=== PATIENT | male | born 1970 | race Caucasian/White ===

== ENCOUNTER 2017-11-16 05:36 | Outpatient (CLI) | payer OTHER ==
[~2017-11-16] VITALS: Ht 188 cm; Wt 74.8 kg
== END 2017-11-16 10:38 ==
LOC: PREOP 05:36
PROVIDERS: ATTEND Otolaryngology Otolaryngology/Facial Plastic Surgery
DX: Z01.818 Encounter for other preprocedural examination (principal); J38.3 Other diseases of vocal cords

== ENCOUNTER 2017-11-20 06:08 | Day surgery (SDC) | payer OTHER ==
[~2017-11-20] VITALS: Ht 188 cm; Wt 74.8 kg
--- OUTSIDE RECORDS SUMMARY | 2017-11-20 06:11 | XMS REPORT | Clinical Summary ---
Author Author Admin, Gurpreet Organization [facility] [facility] Address Unknown Phone Unavailable Allergies, Adverse Reactions, Alerts Allergy Name Reaction Description Start Date Severity Status Provider Allergies Unknown Conditions or Problems Problem Name Problem Code Onset Date Status Entry Date Provider Comment Standard Description Annotate Olecranon bursitis 726.33 Active Jillina Frazell SHOP MECHANIC HELPER Olecranon bursitis Cellulitis 682.9 Active Jillina Frazell SHOP MECHANIC HELPER Cellulitis and abscess of unspecified sites Medication List Medication Instructions Start Date Stop Date Generic Name NDC Status Provider Patient Instruction PREDNISONE 20 MG TAB 2 tabs daily for 3 days, 1 tab daily for 3 days, 1/2 tab daily for 2 days PREDNISONE 75134261720 Active Jillina Frazell SHOP MECHANIC HELPER Active BACTRIM DS 800-160 MG TAB 1 tab by mouth twice daily TRIMETHOPRIM-SULFAMETHOXAZOLE 82126600087 Active Jillina Frazell SHOP MECHANIC HELPER Active Encounters Code Encounter Date Provider Facility CPT-19022 Level 3 Est. Patient 15:25:03 CDT Sierra Weinerl SHOP MECHANIC HELPER [employer] [facility] Procedures Code Procedure Name Date Entry Date Standard Description CPT-29916 Elbow, right, Comp Min 3V - XRAY USE ONLY 16:36:20 CDT
--- OUTSIDE RECORDS SUMMARY | 2017-11-20 06:11 | XMS REPORT | Clinical Summary ---
Author Author Admin, Gurpreet Organization [employer] Address Unknown Phone Unavailable Allergies, Adverse Reactions, Alerts Allergy Name Reaction Description Start Date Severity Status Provider Allergies Unknown Conditions or Problems Problem Name Problem Code Onset Date Status Entry Date Provider Comment Standard Description Annotate Olecranon bursitis 726.33 Active Jillina Frazell DROP WIRE ALIGNER Olecranon bursitis Cellulitis 682.9 Active Jillina Frazell DROP WIRE ALIGNER Cellulitis and abscess of unspecified sites Medication List Medication Instructions Start Date Stop Date Generic Name NDC Status Provider Patient Instruction PREDNISONE 20 MG TAB 2 tabs daily for 3 days, 1 tab daily for 3 days, 1/2 tab daily for 2 days PREDNISONE 99713608163 Active Jillina Frazell DROP WIRE ALIGNER Active BACTRIM DS 800-160 MG TAB 1 tab by mouth twice daily TRIMETHOPRIM-SULFAMETHOXAZOLE 10271914553 Active Jillina Frazell DROP WIRE ALIGNER Active Encounters Code Encounter Date Provider Facility CPT-79664 Level 3 Est. Patient 15:25:03 CDT Sierra Weinerl DROP WIRE ALIGNER [facility] Procedures Code Procedure Name Date Entry Date Standard Description CPT-61622 Elbow, right, Comp Min 3V - XRAY USE ONLY 16:36:20 CDT
--- OUTSIDE RECORDS SUMMARY | 2017-11-20 06:11 | XMS REPORT | Clinical Summary ---
Author Author Admin, EMMANUELLE Organization [employer] Address Unknown Phone Unavailable Allergies, Adverse Reactions, Alerts Allergy Name Reaction Description Start Date Severity Status Provider No Known Allergies Pily Cunningham LPN Conditions or Problems Problem Name Problem Code Onset Date Status Entry Date Provider Comment Standard Description Annotate Olecranon bursitis 726.33 Active Jillina Frazell CURATOR OF MANUSCRIPTS Olecranon bursitis Cellulitis 682.9 Active Jillina Frazell CURATOR OF MANUSCRIPTS Cellulitis and abscess of unspecified sites Medication List Medication Instructions Start Date Stop Date Generic Name NDC Status Provider Patient Instruction PREDNISONE 20 MG TAB 2 tabs daily for 3 days, 1 tab daily for 3 days, 1/2 tab daily for 2 days PREDNISONE 08810335564 No Longer Active Jillina Frazell CURATOR OF MANUSCRIPTS Active BACTRIM DS 800-160 MG TAB 1 tab by mouth twice daily TRIMETHOPRIM-SULFAMETHOXAZOLE 85506330396 No Longer Active Jillina Frazell CURATOR OF MANUSCRIPTS Active BACTRIM DS 800-160 MG TAB 1 tab by mouth twice daily BACTRIM DS 800-160 MG TAB [id number] TRIMETHOPRIM-SULFAMETHOXAZOLE Inactive PREDNISONE 20 MG TAB 2 tabs daily for 3 days, 1 tab daily for 3 days, 1/2 tab daily for 2 days PREDNISONE 20 MG TAB [id number] PREDNISONE Inactive Vital Signs Date Name Value Unit Range Description blood pressure, diastolic - 8462-4 86 mm[Hg] BP burch blood pressure, systolic - 8480-6 132 mm[Hg] BP sys height E&M - 8302-2 72 [in_us] Bdy height pulse rate E&M - 8867-4 89 /min Heart rate temperature E&M 98.7 [degF] Body temperature weight E&M - 3141-9 167 [lb_av] Weight Measured Encounters Code Encounter Date Provider Facility CPT-71084 Level 3 Est. Patient 15:25:03 CDT Sierra Vasquez [facility] Procedures Code Procedure Name Date Entry Date Standard Description CPT-07969 Elbow, right, Comp Min 3V - XRAY USE ONLY 16:36:20 CDT
--- OUTSIDE RECORDS SUMMARY | 2017-11-20 06:12 | XMS REPORT | Clinical Summary ---
Author Author Admin, EMMANUELLE Organization [employer] Address Unknown Phone Unavailable Allergies, Adverse Reactions, Alerts Allergy Name Reaction Description Start Date Severity Status Provider No Known Allergies Pily Cunningham LPN Conditions or Problems Problem Name Problem Code Onset Date Status Entry Date Provider Comment Standard Description Annotate Olecranon bursitis 726.33 Active Jillina Frazell STAFFING ANALYST Olecranon bursitis Cellulitis 682.9 Active Jillina Frazell STAFFING ANALYST Cellulitis and abscess of unspecified sites Medication List Medication Instructions Start Date Stop Date Generic Name NDC Status Provider Patient Instruction PREDNISONE 20 MG TAB 2 tabs daily for 3 days, 1 tab daily for 3 days, 1/2 tab daily for 2 days PREDNISONE [id number] No Longer Active Jillina Frazell STAFFING ANALYST Active BACTRIM DS 800-160 MG TAB 1 tab by mouth twice daily TRIMETHOPRIM-SULFAMETHOXAZOLE 46164281493 No Longer Active Jillina Frazell STAFFING ANALYST Active BACTRIM DS 800-160 MG TAB 1 tab by mouth twice daily BACTRIM DS 800-160 MG TAB [id number] TRIMETHOPRIM-SULFAMETHOXAZOLE Inactive PREDNISONE 20 MG TAB 2 tabs daily for 3 days, 1 tab daily for 3 days, 1/2 tab daily for 2 days PREDNISONE 20 MG TAB [id number] PREDNISONE Inactive Vital Signs Date Name Value [...] Measured Encounters Code Encounter Date Provider Facility CPT-76089 Level 3 Est. Patient 15:25:03 CDT Sierra Vasquez [facility] Procedures Code Procedure Name Date Entry Date Standard Description CPT-59616 Elbow, right, Comp Min 3V - XRAY USE ONLY 16:36:20 CDT
--- OUTSIDE RECORDS SUMMARY | 2017-11-20 06:12 | XMS REPORT | Clinical Summary ---
Author Author Admin, Gurpreet Organization [employer] Address Unknown Phone Unavailable Allergies, Adverse Reactions, Alerts Allergy Name Reaction Description Start Date Severity Status Provider Allergies Unknown Conditions or Problems Problem Name Problem Code Onset Date Status Entry Date Provider Comment Standard Description Annotate Olecranon bursitis 726.33 Active Jillina Frazell INSPECTOR FINAL ASSEMBLY ELECTRICAL Olecranon bursitis Cellulitis 682.9 Active Jillina Frazell INSPECTOR FINAL ASSEMBLY ELECTRICAL Cellulitis and abscess of unspecified sites Medication List Medication Instructions Start Date Stop Date Generic Name NDC Status Provider Patient Instruction PREDNISONE 20 MG TAB 2 tabs daily for 3 days, 1 tab daily for 3 days, 1/2 tab daily for 2 days PREDNISONE 05713438225 Active Jillina Frazell INSPECTOR FINAL ASSEMBLY ELECTRICAL Active BACTRIM DS 800-160 MG TAB 1 tab by mouth twice daily TRIMETHOPRIM-SULFAMETHOXAZOLE 19766371869 Active Jillina Frazell INSPECTOR FINAL ASSEMBLY ELECTRICAL Active Encounters Code Encounter Date Provider Facility CPT-28270 Level 3 Est. Patient 15:25:03 CDT Sierra Weinerl INSPECTOR FINAL ASSEMBLY ELECTRICAL [employer] [facility] Procedures Code Procedure Name Date Entry Date Standard Description CPT-33798 Elbow, right, Comp Min 3V - XRAY USE ONLY 16:36:20 CDT
--- OUTSIDE RECORDS SUMMARY | 2017-11-20 06:12 | XMS REPORT | Clinical Summary ---
Author Author Admin, Gurpreet Organization [employer] Address Unknown Phone Unavailable Allergies, Adverse Reactions, Alerts Allergy Name Reaction Description Start Date Severity Status Provider Allergies Unknown Conditions or Problems Problem Name Problem Code Onset Date Status Entry Date Provider Comment Standard Description Annotate Olecranon bursitis 726.33 Active Jillina Frazell CAR RENTAL AGENCY MANAGER Olecranon bursitis Cellulitis 682.9 Active Jillina Frazell CAR RENTAL AGENCY MANAGER Cellulitis and abscess of unspecified sites Medication List Medication Instructions Start Date Stop Date Generic Name NDC Status Provider Patient Instruction PREDNISONE 20 MG TAB 2 tabs daily for 3 days, 1 tab daily for 3 days, 1/2 tab daily for 2 days PREDNISONE 97530113204 Active Jillina Frazell CAR RENTAL AGENCY MANAGER Active BACTRIM DS 800-160 MG TAB 1 tab by mouth twice daily TRIMETHOPRIM-SULFAMETHOXAZOLE 49129496406 Active Jillina Frazell CAR RENTAL AGENCY MANAGER Active Encounters Code Encounter Date Provider Facility CPT-01220 Level 3 Est. Patient 15:25:03 CDT Sierra Weinerl CAR RENTAL AGENCY MANAGER [employer] [facility] Procedures Code Procedure Name Date Entry Date Standard Description CPT-62383 Elbow, right, Comp Min 3V - XRAY USE ONLY 16:36:20 CDT
--- OUTSIDE RECORDS SUMMARY | 2017-11-20 06:12 | XMS REPORT | Clinical Summary ---
Author Author Admin, Gurpreet Organization [employer] Address Unknown Phone Unavailable Allergies, Adverse Reactions, Alerts Allergy Name Reaction Description Start Date Severity Status Provider Allergies Unknown Conditions or Problems Problem Name Problem Code Onset Date Status Entry Date Provider Comment Standard Description Annotate Olecranon bursitis 726.33 Active Jillina Frazell SUPERVISOR AGENCY APPOINTMENTS Olecranon bursitis Cellulitis 682.9 Active Jillina Frazell SUPERVISOR AGENCY APPOINTMENTS Cellulitis and abscess of unspecified sites Medication List Medication Instructions Start Date Stop Date Generic Name NDC Status Provider Patient Instruction PREDNISONE 20 MG TAB 2 tabs daily for 3 days, 1 tab daily for 3 days, 1/2 tab daily for 2 days PREDNISONE 06251905503 Active Jillina Frazell SUPERVISOR AGENCY APPOINTMENTS Active BACTRIM DS 800-160 MG TAB 1 tab by mouth twice daily TRIMETHOPRIM-SULFAMETHOXAZOLE 91210747479 Active Jillina Frazell SUPERVISOR AGENCY APPOINTMENTS Active Encounters Code Encounter Date Provider Facility CPT-71596 Level 3 Est. Patient 15:25:03 CDT Sierra Weinerl SUPERVISOR AGENCY APPOINTMENTS [employer] [facility] Procedures Code Procedure Name Date Entry Date Standard Description CPT-46599 Elbow, right, Comp Min 3V - XRAY USE ONLY 16:36:20 CDT
--- OUTSIDE RECORDS SUMMARY | 2017-11-20 06:12 | XMS REPORT | Clinical Summary ---
Author Author Admin, Gurpreet Organization [employer] Address Unknown Phone Unavailable Allergies, Adverse Reactions, Alerts Allergy Name Reaction Description Start Date Severity Status Provider Allergies Unknown Conditions or Problems Problem Name Problem Code Onset Date Status Entry Date Provider Comment Standard Description Annotate Olecranon bursitis 726.33 Active Jillina Frazell EXPERIMENTAL OUTBOARD MOTORS MECHANIC Olecranon bursitis Cellulitis 682.9 Active Jillina Frazell EXPERIMENTAL OUTBOARD MOTORS MECHANIC Cellulitis and abscess of unspecified sites Medication List Medication Instructions Start Date Stop Date Generic Name NDC Status Provider Patient Instruction PREDNISONE 20 MG TAB 2 tabs daily for 3 days, 1 tab daily for 3 days, 1/2 tab daily for 2 days PREDNISONE 27658966242 Active Jillina Frazell EXPERIMENTAL OUTBOARD MOTORS MECHANIC Active BACTRIM DS 800-160 MG TAB 1 tab by mouth twice daily TRIMETHOPRIM-SULFAMETHOXAZOLE 38061867147 Active Jillina Frazell EXPERIMENTAL OUTBOARD MOTORS MECHANIC Active Encounters Code Encounter Date Provider Facility CPT-76510 Level 3 Est. Patient 15:25:03 CDT Sierra Weinerl EXPERIMENTAL OUTBOARD MOTORS MECHANIC [employer] [facility] Procedures Code Procedure Name Date Entry Date Standard Description CPT-12546 Elbow, right, Comp Min 3V - XRAY USE ONLY 16:36:20 CDT
--- OUTSIDE RECORDS SUMMARY | 2017-11-20 06:12 | XMS REPORT | Clinical Summary ---
Author Author Admin, Gurpreet Organization [employer] Address Unknown Phone Unavailable Allergies, Adverse Reactions, Alerts Allergy Name Reaction Description Start Date Severity Status Provider Allergies Unknown Conditions or Problems Problem Name Problem Code Onset Date Status Entry Date Provider Comment Standard Description Annotate Olecranon bursitis 726.33 Active Jillina Frazell GROUP CONTROLLER Olecranon bursitis Cellulitis 682.9 Active Jillina Frazell GROUP CONTROLLER Cellulitis and abscess of unspecified sites Medication List Medication Instructions Start Date Stop Date Generic Name NDC Status Provider Patient Instruction PREDNISONE 20 MG TAB 2 tabs daily for 3 days, 1 tab daily for 3 days, 1/2 tab daily for 2 days PREDNISONE 63216794586 Active Jillina Frazell GROUP CONTROLLER Active BACTRIM DS 800-160 MG TAB 1 tab by mouth twice daily TRIMETHOPRIM-SULFAMETHOXAZOLE 94679614317 Active Jillina Frazell GROUP CONTROLLER Active Encounters Code Encounter Date Provider Facility CPT-37227 Level 3 Est. Patient 15:25:03 CDT Sierra Weinerl GROUP CONTROLLER [email or web address] [facility] Procedures Code Procedure Name Date Entry Date Standard Description CPT-41118 Elbow, right, Comp Min 3V - XRAY USE ONLY 16:36:20 CDT
--- OUTSIDE RECORDS SUMMARY | 2017-11-20 06:12 | XMS REPORT | Clinical Summary ---
Author Author Admin, EMMANUELLE Organization [employer] Address Unknown Phone Unavailable Allergies, Adverse Reactions, Alerts Allergy Name Reaction Description Start Date Severity Status Provider Allergies Unknown Conditions or Problems Problem Name Problem Code Onset Date Status Entry Date Provider Comment Standard Description Annotate Olecranon bursitis 726.33 Active Jillina Frazell CURB AND GUTTER LABORER Olecranon bursitis Cellulitis 682.9 Active Jillina Frazell CURB AND GUTTER LABORER Cellulitis and abscess of unspecified sites Medication List Medication Instructions Start Date Stop Date Generic Name NDC Status Provider Patient Instruction PREDNISONE 20 MG TAB 2 tabs daily for 3 days, 1 tab daily for 3 days, 1/2 tab daily for 2 days PREDNISONE 84292434282 No Longer Active Jillina Frazell CURB AND GUTTER LABORER Active BACTRIM DS 800-160 MG TAB 1 tab by mouth twice daily TRIMETHOPRIM-SULFAMETHOXAZOLE 54432076490 No Longer Active Jillina Frazell CURB AND GUTTER LABORER Active BACTRIM DS 800-160 MG TAB 1 tab by mouth twice daily BACTRIM DS 800-160 MG TAB [id number] TRIMETHOPRIM-SULFAMETHOXAZOLE Inactive PREDNISONE 20 MG TAB 2 tabs daily for 3 days, 1 tab daily for 3 days, 1/2 tab daily for 2 days PREDNISONE 20 MG TAB [id number] PREDNISONE Inactive Encounters Code Encounter Date Provider Facility CPT-82504 Level 3 Est. Patient 15:25:03 CDT Sierra Vasquez APRN [employer] Procedures Code Procedure Name Date Entry Date Standard Description CPT-21480 Elbow, right, Comp Min 3V - XRAY USE ONLY 16:36:20 CDT
[2017-11-20] MEDS ORDERED: LACTATED RINGERS 1,000 ML IV PRN (06:20)
[2017-11-20] MEDS ORDERED: fentaNYL INJECTION 100 MCG/2 ML AMP ONE (06:33)
[2017-11-20] MEDS ORDERED: ROCURONIUM 10 MG/ML 5 ML SYRINGE IV ONE (06:33)
[2017-11-20] MEDS ORDERED: SEVOFLURANE (ULTANE) 15 ML INHAL SOLN ONE ×2 (06:33→07:22)
[2017-11-20] MEDS ORDERED: DEXAMETHASONE 10 MG/ML (DECADRON) 1 ML VIAL ONE (06:33)
[2017-11-20] MEDS ORDERED: proPOfol 200 MG/20 ML (DIPRIVAN) VIAL IV ONE ×2 (06:33→07:21)
[2017-11-20] MEDS ORDERED: LIDOCAINE PF 2% 5 ML (XYLOCAINE) VIAL ONE (06:33)
[2017-11-20] MEDS ORDERED: ONDANSETRON 4 MG/2 ML (SDV) Z0FRAN ONE (06:33)
[2017-11-20] MEDS ORDERED: MIDAZOLAM 2 MG/2 ML (VERSED) VIAL ONE (06:33)
[2017-11-20 06:43] VITALS: BP 143/76
[2017-11-20] MEDS ORDERED: LIDOCAINE/EPI 1%-1:200,000 (XYLOCAINE) 10 ML VIAL ONE (06:59)
--- NOTE | 2017-11-20 06:59 | Progress Note-Pre Operative ---
Pre-Operative Progress Note H&P Reviewed The H&P was reviewed, patient examined and no changes noted. Date Seen by Provider: Nov 20, 2017 Time Seen by Provider: 07:00 Date H&P Reviewed: Nov 20, 2017 Time H&P Reviewed: 07:00 Pre-Operative Diagnosis: Left Vocal Cord Lesion WIN JONES MD Nov 20, 2017 6:59 am
--- NOTE | 2017-11-20 07:28 | Progress Note-Post Operative ---
Post-Operative Progess Note Surgeon (s)/Health Assistant (s) Surgeon WIN JONES MD Health Assistant n/a Pre-Operative Diagnosis Left Vocal Cord Lesion Post-Operative Diagnosis same Post-Op Procedure Note Date of Procedure: Nov 20, 2017 Name of Procedure Performed: Direct Laryngoscopy with Removal of Left Vocal Cord Lesion Description & Findings Description and Findings: n/a Anesthesia Type get Estimated Blood Loss minimal Packing none. Specimen(s) collected/removed left vocal cord lesion WIN JONES MD Nov 20, 2017 7:28 am
[2017-11-20] MEDS ORDERED: ACETAMINOPHEN 325 MG TABLET/CAPLET (TYLENOL) PO PRN (07:30)
[2017-11-20] MEDS ORDERED: HYDROcodone/APAP 5 MG/325 MG (LORTAB) TAB PO PRN (07:30)
[2017-11-20] MEDS ORDERED: PROMETHAZINE INJ 25 MG/ML (PHENERGAN) AMP IV PRN (07:30)
[2017-11-20 08:30] VITALS: BP 116/72
[2017-11-20] MEDS ORDERED: HYDR-3812 PO (08:50)
[2017-11-20 09:00] VITALS: BP 115/75
[2017-11-20 09:30] VITALS: BP 144/85
--- NOTE | 2017-11-20 14:03 | Anesthesia-General Post-Op ---
General Patient Condition Mental Status/LOC: Same as Preop Cardiovascular: Satisfactory Nausea/Vomiting: Absent Respiratory: Satisfactory Pain: Controlled Complications: Absent Post Op Complications Complications None Follow Up Care/Instructions Patient Instructions None needed. Anesthesia/Patient Condition Patient Condition Patient is doing well, no complaints, stable vital signs, no apparent adverse anesthesia problems. No complications reported per nursing. LIBERTAD COUCH CRNA Nov 20, 2017 14:03
== END 2017-11-20 09:30 | disposition home or self-care (01) ==
LOC: SDC 06:08
PROVIDERS: ATTEND Otolaryngology Otolaryngology/Facial Plastic Surgery
DX: J38.3 Other diseases of vocal cords (principal)
CPT/HCPCS: 87081